=== PATIENT | male | born 2000 | race Caucasian/White ===

== ENCOUNTER 2024-01-02 22:51 | Emergency (ER) | payer MEDICAID ==
[~2024-01-02] VITALS: Ht 172.7 cm; Wt 105.0 kg
[2024-01-02 22:56] VITALS: O2SAT 95
[2024-01-03] MEDS: TETANUS, DIPHTHERIA, PERTUSSIS VAC/PF 0.5ML (>10YR OLD) IM ONE (00:50)
[2024-01-03 01:08] VITALS: BP 120/69; PULSE 74; RESP 16; TEMP 98.2
== END 2024-01-03 01:09 | disposition home or self-care (01) ==
LOC: ER 22:51
DX: S00.31XA Abrasion of nose, initial encounter (principal); Y08.89XA Assault by other specified means, initial encounter; Y93.89 Activity, other specified; Y92.89 Other specified places as the place of occurrence of the external cause; Y99.8 Other external cause status
CPT/HCPCS: 90471; 90715; 99283